=== PATIENT | female | born 1970 | race Caucasian/White ===

== ENCOUNTER 2018-06-23 11:00 | Emergency (ER) | payer OTHER ==
[~2018-06-23] VITALS: Ht 162.6 cm; Wt 67.1 kg
[2018-06-23] MEDS ORDERED: ZOCOR20 MG PO (11:03)
== END 2018-06-23 11:50 | disposition home or self-care (01) ==
LOC: ER 11:00
DX: M54.89 Other dorsalgia (principal)

== ENCOUNTER 2023-04-17 07:28 | Outpatient (CLI) | payer OTHER ==
[~2023-04-17 07:28] MED LIST: ZOCOR20 MG PO
== END 2023-04-17 07:31 | disposition home or self-care (01) ==
LOC: RX STUDY 07:28
PROVIDERS: ATTEND Internal Medicine Gastroenterology
DX: R13.12 Dysphagia, oropharyngeal phase (principal); Z91.018 Allergy to other foods